=== PATIENT | male | born 1990 | race Caucasian/White ===

== ENCOUNTER 2024-12-28 12:08 | Emergency (ER) | payer BC, SELFPAY ==
--- NOTE | ~2024-12-28 | XR_ITS ---
CLINICAL HISTORY: back pain 3 views thoracic spine Comparison: None Findings: Normal vertebral body alignment. No acute fractures or dislocation. No significant degenerative change. IMPRESSION: No acute findings. This document has been electronically signed by: Miladys Gilbert MD on 12/28/2024 13:45:51
--- NOTE | ~2024-12-28 | XR_ITS ---
CLINICAL HISTORY: back pain 3 views lumbar spine Comparison: None Findings: Normal alignment. No acute fractures or dislocation. Very mild degenerative disc disease at L2-L3. IMPRESSION: No acute findings. This document has been electronically signed by: Miladys Gilbert MD on 12/28/2024 13:46:08
[2024-12-28 12:47] VITALS: BP 132/92; PULSE 80; RESP 19; TEMP 36.6; O2SAT 98; BMI 29.3
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
[2024-12-28 16:39] VITALS: BP 132/92; PULSE 80; RESP 19; TEMP 36.6; O2SAT 98
== END 2024-12-28 16:39 | disposition home or self-care (01) ==
PROVIDERS: Emergency Provider Emergency Medicine
DX: S39.012A Strain of muscle, fascia and tendon of lower back, initial encounter (principal); M54.6 Pain in thoracic spine; V43.52XA Car driver injured in collision with other type car in traffic accident, initial encounter; Y93.9 Activity, unspecified; Y92.488 Other paved roadways as the place of occurrence of the external cause; Y99.8 Other external cause status
CPT/HCPCS: 72072; 72100; 99282; 99283

== ENCOUNTER → 2024-12-28 12:48 | Outpatient (BNV) | payer SELFPAY | PROVIDERS: Visit Provider Radiology Diagnostic Radiology | DX: M54.50 Low back pain, unspecified (principal); M54.6 Pain in thoracic spine | CPT/HCPCS: 72072; 72100 ==